=== PATIENT | female | born 1995 | race Caucasian/White ===

== ENCOUNTER 2018-06-15 06:10 | Inpatient (IN) | payer OTHER ==
--- NOTE | 2018-06-15 09:45 | PR ---
[facility] [address] [facility] [place], [place] [address] Signed Progress Notes IP Datetime Report Generated by CPRene: 06/15/2018 09:45 PROGRESS NOTES: [id number] Impression: Normal progression of labor Procedures: Artificial ROM; Scalp Electrode Plan: Continue present management VITAL SIGNS: [id number] Vital Signs: Reviewed; Within Normal Limits EXAM: [id number] Dilatation: 3.0 Effacement: 90 Station: -1 Uterine Contractions: every 1-3 minutes MEMBRANES: [id number] Membrane Status: Ruptured Amniotic Fluid Color: Clear ROM Note: AROM without difficulty, moderate amount clear fluid, decel to 90 right after AROM, resolved with O2 and position change Comments: Good variability but FEKG attached due to rare 15x15 accelerations N2O ordered Fetus A: [id number] FHR Baseline: 120 Variability: Moderate 6-25bpm Accelerations: 10X10 Decelerations: Variable Presentation: Vertex Fetus B: [id number] Signing Physician: Lukas Rogel MD Copies: ~ *Electronically Signed* 06/15/18 0945 LUKAS ROGEL MD PATIENT NAME: GAEL DEGROOT PROGRESS NOTE DATE OF : [birth year] PHYSICIAN: LUKAS ROGEL MD RPT #: [id number] REPORT IS CONFIDENTIAL AND NOT TO BE RELEASED WITHOUT AUTHORIZATION
--- NOTE | 2018-06-15 11:56 | PR ---
[facility] [address] [facility] [place], [place] [address] Signed Progress Notes IP Datetime Report Generated by CPRene: 06/15/2018 11:56 PROGRESS NOTES: [id number] Impression: Normal progression of labor Procedures: Artificial ROM; Scalp Electrode Plan: Continue present management; Anticipate Vaginal Delivery VITAL SIGNS: [id number] Vital Signs: Reviewed; Within Normal Limits EXAM: [id number] Dilatation: 10.0 Effacement: 100 Station: 1 Uterine Contractions: every 2-3 minutes MEMBRANES: [id number] Membrane Status: Ruptured Amniotic Fluid Color: Clear ROM Note: AROM without difficulty, moderate amount clear fluid, decel to 90 right after AROM, resolved with O2 and position change Comments: Trying to push but very painful. Offered Intrathecal anesthesia, but refused. Will continue pushing Fetus A: [id number] FHR Baseline: 115 Variability: Moderate 6-25bpm Accelerations: 10X10 Decelerations: Early; Variable Presentation: Vertex Fetus B: [id number] Signing Physician: Lukas Rogel MD Copies: ~ *Electronically Signed* 06/15/18 1156 LUKAS ROGEL MD PATIENT NAME: GAEL DEGROOT PROGRESS NOTE DATE OF : [birth year] PHYSICIAN: LUKAS ROGEL MD RPT #: [id number] REPORT IS CONFIDENTIAL AND NOT TO BE RELEASED WITHOUT AUTHORIZATION
--- NOTE | 2018-06-15 13:07 | PR ---
[facility] [address] [facility] [place], [place] [address] Signed Progress Notes IP Datetime Report Generated by CPN: 06/15/2018 13:07 PROGRESS NOTES: [id number] Impression: Normal progression of labor Procedures: Artificial ROM; Scalp Electrode Plan: Continue present management Other Plans: Try "hands-knees" VITAL SIGNS: [id number] Vital Signs: Reviewed; Within Normal Limits EXAM: [id number] Dilatation: 10.0 Effacement: 100 Station: 1 Uterine Contractions: every 1-3 minutes MEMBRANES: [id number] Membrane Status: Ruptured Amniotic Fluid Color: Clear ROM Note: AROM without difficulty, moderate amount clear fluid, decel to 90 right after AROM, resolved with O2 and position change Comments: Pushing about 1.5 hrs, fetus now feels probably OP. Will try pushing "hands-knees" Fetus A: [id number] FHR Baseline: 120 Variability: Moderate 6-25bpm Accelerations: 10X10 Decelerations: Variable Presentation: Vertex Fetus B: [id number] Signing Physician: Luz Rogel MD Copies: ~ *Electronically Signed* 06/15/18 1307 LUZ ROGEL MD PATIENT NAME: GAEL DEGROOT PROGRESS NOTE DATE OF : [birth year] PHYSICIAN: LUZ ROGEL MD RPT #: [id number] REPORT IS CONFIDENTIAL AND NOT TO BE RELEASED WITHOUT AUTHORIZATION
--- NOTE | 2018-06-15 15:02 | PR ---
[facility] [address] [facility] [place] [address] Signed PP Progress Notes Datetime Report Generated by CPN: 06/15/2018 15:02 SUBJECTIVE: [id number] Vital Signs: I1335929 Vital Signs: Reviewed; Within Normal Limits EXAM: [id number] IMPRESSION/PLAN/PROCEDURES: J1162370 Progress Notes: Op Note: Retained Placenta Signing Physician: Luz Rogel MD Copies: ~ *Electronically Signed* 06/15/18 1502 LUZ ROGEL MD PATIENT NAME: GAEL DEGROOT PROGRESS NOTE DATE OF : [birth year] PHYSICIAN: LUZ ROGEL MD RPT #: [id number] REPORT IS CONFIDENTIAL AND NOT TO BE RELEASED WITHOUT AUTHORIZATION
--- NOTE | 2018-06-15 15:11 | NUR ---
06/15/18 1511 Nivia Barr 1094 PT ARRIVED IN PACU SLEEPY. FUNDUS FIRM AT UMBILICUS WITH SCANT AMOUNT OF DRAINAGE.
--- NOTE | 2018-06-16 10:38 | PR ---
[facility] [address] [facility] [place], [place] [address] Signed PP Progress Notes Datetime Report Generated by CPN: 06/16/2018 10:38 SUBJECTIVE: [id number] Pain: Within normal limits Nausea/Vomiting: Denies Vital Signs: F7670214 Vital Signs: Reviewed; Within Normal Limits Notable Details: PP Hgb/Hct = 10.1/30.2 EXAM: [id number] Abdomen/Uterus: Normal Lochia: Normal Extremities: Normal IMPRESSION/PLAN/PROCEDURES: [id number] Impression: Normal progression Plan: Continue present management Procedures: None Progress Notes: Doing well, without complaitn, no problems after manual removal of placenta, no dizziness when showering. Signing Physician: Luz Rogel MD Copies: ~ *Electronically Signed* 06/16/18 1038 LUZ ROGEL MD PATIENT NAME: GAEL DEGROOT PROGRESS NOTE DATE OF : [birth year] PHYSICIAN: LUZ ROGEL MD RPT #: [id number] REPORT IS CONFIDENTIAL AND NOT TO BE RELEASED WITHOUT AUTHORIZATION
--- NOTE | 2018-06-17 07:52 | PR ---
[facility] [address] [facility] [place] [address] Signed PP Progress Notes Datetime Report Generated by CPN: 06/17/2018 07:52 SUBJECTIVE: [id number] Pain: Within normal limits Nausea/Vomiting: Denies Vital Signs: G2087444 Vital Signs: Reviewed; Within Normal Limits Notable Details: PP Hgb/Hct = 10.1/30.2 EXAM: [id number] Abdomen/Uterus: Normal Lochia: Normal Extremities: Normal IMPRESSION/PLAN/PROCEDURES: N9957925 Impression: Normal progression Plan: Discharge Procedures: None Progress Notes: Doing well, wants to go home Signing Physician: Luz Rogel MD Copies: ~ *Electronically Signed* 06/17/18 0752 LUZ ROGEL MD PATIENT NAME: GAEL DEGROOT PROGRESS NOTE DATE OF : [birth year] PHYSICIAN: LUZ ROGEL MD RPT #: [id number] REPORT IS CONFIDENTIAL AND NOT TO BE RELEASED WITHOUT AUTHORIZATION
--- NOTE | 2018-06-19 14:01 | OR ---
[facility] [address] [facility] [place], [place] [address] Signed DATE OF OPERATION: 06/15/2018 SURGEON: Lukas Jhaveri MD PREOPERATIVE DIAGNOSIS: retained placenta and first-degree perineal laceration. POSTOPERATIVE DIAGNOSIS: retained placenta and first-degree perineal laceration. PROCEDURE PERFORMED: Manual removal of placenta and repair of laceration. ANESTHESIA: General. ESTIMATED BLOOD LOSS: 350 mL. COMPLICATIONS: None. DRAINS: None. FINDINGS: First-degree perineal laceration in the midline and extending up the left vaginal opening for about 3 cm and no other lacerations seen. The cervix was 4-5 cm diameter. The placenta was quite calcified, mildly adherent to the uterus, mostly in the fundus, but was removed in its entirety. DESCRIPTION OF PROCEDURE: The patient was brought to the operating room, placed in supine position. After adequate general anesthesia was obtained, was placed in the dorsal lithotomy position, prepped and draped in usual sterile fashion. Exam under anesthesia was done gently through the cervix and into the uterine cavity. The placenta could be felt and was gently grasped and noted to be somewhat adherent to the uterus, mostly in the fundus. Fingers were used to separate the placenta from the uterine wall, gently and twisting until the entire placenta was . The placenta was then manually removed through the cervix and now the placenta was inspected. The entire placenta Electronically Signed By: LUKAS JHAVERI MD 06/19/18 1401 PATIENT NAME: GAEL DEGROOT OPERATIVE REPORT DATE OF : [birth year] REPORT #: [id number] PHYSICIAN: LUKAS JHAVERI MD PCP: ELPIDIO ESTRADA REPORT IS CONFIDENTIAL AND NOT TO BE RELEASED WITHOUT AUTHORIZATION [facility] [address] [place], [place] [address] Signed appeared to be there with no missing pieces. The entire placenta had small granulations throughout, calcifications from being postterm, otherwise appeared normal. During the removal, the patient was given Pitocin in IV. The uterus was palpated and noted to be much more firm and while there was large amount of blood removed with the placenta, once the placenta was out the bleeding became minimal. Lap pad was placed in the vagina and then the perineal laceration closed using a 3-0 Vicryl suture, this started as a running locking stitch in midline vagina out to the opening and then subcuticularly through the perineal skin tied in the midline. The small superficial extension along the left side of the opening was closed with the same 3-0 Vicryl suture in subcuticular stitch. At this point, the lap was removed, the entire vagina examined, and no other lacerations were seen. Minimal bleeding was there. Uterus was repalpated and noted to be quite firm. The patient tolerated the procedure well, went to recovery room in good condition. The sponge, needle, and instrument counts were correct at the end of the procedure. The placenta was sent to Pathology for identification. MD BRY Arce/TOBIASL /[id number] Copies: ~ Electronically Signed By: LUKAS JHAVERI MD 06/19/18 1401 PATIENT NAME: GAEL DEGROOT OPERATIVE REPORT DATE OF : [birth year] REPORT #: [id number] PHYSICIAN: LUKAS JHAVERI MD PCP: ELPIDIO ESTRADA REPORT IS CONFIDENTIAL AND NOT TO BE RELEASED WITHOUT AUTHORIZATION
== END 2018-06-17 10:50 | disposition home or self-care (01) | DRG 807 ==
LOC: FBC 06:10
PROVIDERS: ADMIT General Practice
PROC: 10D17Z9 Manual Extraction of Products of Conception, Retained, Via Natural or Artificial Opening (ICD-10-PCS; 2018-06-15)
PROC: 0HQ9XZZ Repair Perineum Skin, External Approach (ICD-10-PCS; 2018-06-15)
PROC: 10907ZC Drainage of Amniotic Fluid, Therapeutic from Products of Conception, Via Natural or Artificial Opening (ICD-10-PCS; 2018-06-15)
PROC: 10E0XZZ Delivery of Products of Conception, External Approach (ICD-10-PCS; principal; 2018-06-15 14:20)
DX: O48.0 Post-term pregnancy (principal); Z37.0 Single live birth; Z3A.41 41 weeks gestation of pregnancy; O76 Abnormality in fetal heart rate and rhythm complicating labor and delivery; O99.824 Streptococcus B carrier state complicating childbirth; O73.0 Retained placenta without hemorrhage; O70.0 First degree perineal laceration during delivery; Z88.0 Allergy status to penicillin; Z88.2 Allergy status to sulfonamides; Z91.040 Latex allergy status
CPT/HCPCS: 00940; 36415; 85027; 86850; 86900; 86901; 86920; J0690; J2590; J7120

== ENCOUNTER 2020-11-17 00:02 | Inpatient (IN) | payer SELFPAY ==
[~2020-11-17] VITALS: Ht 170.2 cm; Wt 92.5 kg
--- NOTE | 2020-11-17 00:43 | NUR ---
COVID nasal swab obtained and take to Lab without incident.
--- NOTE | 2020-11-17 10:27 | PR ---
[facility] [address] [facility] [place], [place] [address] Signed PP Progress Notes Datetime Report Generated by CPN: 11/17/2020 10:27 SUBJECTIVE: [id number] Pain: Within Normal Limits Vital Signs: [id number] Vital Signs: Reviewed; Within Normal Limits Abdomen/Uterus: Normal Lochia: Abnormal Vulva/Perineum: Normal Extremities: Normal IMPRESSION/PLAN/PROCEDURES: R7593310 Other Impression: Hemorrhage Progress Notes: Continued Moderate bleeding, EBL +500 ml. Manual exploration with moderatee clots in lower uterues, expressed, no more clots palpable and uterus smaller and firm IV Pitocin 40 units in 1 liter - run in Tranexamic Acid IV (1 gm) Bleeding seems to be slowing now. Signing Physician: Luz Rogel MD Copies: ~ *Electronically Signed* 11/17/20 1027 LUZ ROGEL MD PATIENT NAME: GAEL DEGROOT PROGRESS NOTE DATE OF : [birth year] PHYSICIAN: LUZ ROGEL MD RPT #: [id number] REPORT IS CONFIDENTIAL AND NOT TO BE RELEASED WITHOUT AUTHORIZATION
--- NOTE | 2020-11-17 12:14 | NUR ---
11/17/20 1214 Sheets,Iza 1146 PT ARRIVED TO PACU PT WAKES TO TACTILE STIMULI AND DENIES PAIN AND NAUSEA. PT REORIENTED TO PACU. MANUAL BP CUFF TAKEN DUE TO PT SHAKING. 1200 MD AT BEDSIDE TALKING TO PT, O2 REMOVED. PT RPEORTS SMALL AMOUNT OF CRAMPING 08/21. PLAN OF CARE DISCUSSED.
--- NOTE | 2020-11-17 13:09 | PR ---
[facility] [address] [facility] [place], [place] [address] Signed PP Progress Notes Datetime Report Generated by CPN: 11/17/2020 13:08 SUBJECTIVE: [id number] Pain: Within Normal Limits Vital Signs: J1231233 Vital Signs: Reviewed; Within Normal Limits Abdomen/Uterus: Abnormal Lochia: Abnormal Vulva/Perineum: Normal Extremities: Normal IMPRESSION/PLAN/PROCEDURES: [id number] Other Impression: PP Hemorrhage Progress Notes: Late Entry: Patient's IV infiltrated, and great difficulty getting new IV access, so did not immediately get IV Pitocin and TXA as ordered. 10 mg IM Pitocin given plus 250 mcg Hemabate IM and then Cytotec Suppository while trying to gain IV access. CBC, PT/PTT, and Fibrinogen ordered, again not drawn until patient in OR. Bleeding continued to be moderate, but with good vital signs and no dizziness or light-headedness from patient. Patient taken to OR for EUA, PP Curettage and Bakri Balloon Placement. See Or Report. Total EBL prior to Surgery @ 1000 ml. Signing Physician: Luz Rogel MD Copies: ~ *Electronically Signed* 11/17/20 1308 LUZ ROGEL MD PATIENT NAME: GAEL DEGROOT PROGRESS NOTE DATE OF : [birth year] PHYSICIAN: LUZ ROGEL MD RPT #: [id number] REPORT IS CONFIDENTIAL AND NOT TO BE RELEASED WITHOUT AUTHORIZATION
--- NOTE | 2020-11-17 13:14 | PR ---
[facility] [address] [facility] [place], [place] [address] Signed PP Progress Notes Datetime Report Generated by CPN: 11/17/2020 13:14 SUBJECTIVE: [id number] Pain: Within Normal Limits Vital Signs: [id number] Vital Signs: Reviewed; Within Normal Limits Abdomen/Uterus: Normal Lochia: Normal Vulva/Perineum: Normal Extremities: Normal IMPRESSION/PLAN/PROCEDURES: [id number] Other Impression: Post-Op Other Plans: Continue close monitoring Progress Notes: Awake and alert after surgery. Bleeding is now minimal. Discussed surgical findings, treatment, questions answered.Will folow closely, continue to watch for excessive bleeding, recheck CBC _ Coag Studies @ 1400 (PT/PTT slightly elevated, normal Fibrinogen, stable Hgb/Hct intra-op labs) 2 Units PRBC's on hold. Signing Physician: Luz Rogel MD Copies: ~ *Electronically Signed* 11/17/20 1314 LUZ ROGEL MD PATIENT NAME: GAEL DEGROOT PROGRESS NOTE DATE OF : 94 PHYSICIAN: LUZ ROGEL MD RPT #: [id number] REPORT IS CONFIDENTIAL AND NOT TO BE RELEASED WITHOUT AUTHORIZATION
--- NOTE | 2020-11-17 18:18 | PR ---
[facility] [address] [facility] [place], [place] [address] Signed PP Progress Notes Datetime Report Generated by CPN: 11/17/2020 18:18 SUBJECTIVE: [id number] Pain: Within Normal Limits Nausea/Vomiting: Denies Vital Signs: [id number] Vital Signs: Reviewed; Within Normal Limits Notable Details: Hgb/Hct, Plts, , PT/PTT, Fibrinogen all back to normal Abdomen/Uterus: Normal Lochia: Normal Vulva/Perineum: Normal Extremities: Normal IMPRESSION/PLAN/PROCEDURES: [id number] Impression: Normal Progression Other Impression: Post Bakri Balloon Placement Other Plans: Continue close monitoring Progress Notes: Doing well after Bakri Ballon placement, minimal bleeding, minimal pain. Will continue close monitoring. Plan removal of Bakri Balloon tomorrow Discussed Surgery, follow-up with patient Signing Physician: Luz Rogel MD Copies: ~ *Electronically Signed* 11/17/20 1818 LUZ ROGEL MD PATIENT NAME: GAEL DEGROOT PROGRESS NOTE DATE OF : [birth year] PHYSICIAN: LUZ ROGEL MD RPT #: [id number] REPORT IS CONFIDENTIAL AND NOT TO BE RELEASED WITHOUT AUTHORIZATION
--- NOTE | 2020-11-18 09:25 | PR ---
[facility] [address] [facility] [place], [place] [address] Signed PP Progress Notes Datetime Report Generated by CPN: 11/18/2020 09:25 SUBJECTIVE: [id number] Pain: Within Normal Limits Nausea/Vomiting: Denies Vital Signs: [id number] Vital Signs: Reviewed; Within Normal Limits Notable Details: Hgb/Hct = 8.2/25.0 Abdomen/Uterus: Normal Lochia: Normal Vulva/Perineum: Normal Extremities: Normal Exam Comments: Minimal blood in Bakri Webb bag. Kerlex gauze in vagina, no active bleeding IMPRESSION/PLAN/PROCEDURES: [id number] Impression: Normal Progression Other Impression: Post Bakri Balloon Placement Other Plans: Continue close monitoring Progress Notes: Patient doing well, m inimal bleeding, only feeling pressure in vagina from pack. Kerlex gauze removed withot difficulty, no active bleeding seen. 300 ml fluid removed form Bakri balloon, then ballon slowly removed from uterine cavity. Patietn tolerated procedure well. No active bleeding seen. Will monitor closely now that balloon and packing are out, but expect no more excessive bleeding, will have Webb removed and increase activity in a few hours if patient continues to remain stable. Signing Physician: Luz Rogel MD Copies: ~ *Electronically Signed* 11/18/20 0925 LUZ ROGEL MD PATIENT NAME: GAEL DEGROOT PROGRESS NOTE DATE OF : [birth year] PHYSICIAN: LUZ ROGEL MD RPT #: [id number] REPORT IS CONFIDENTIAL AND NOT TO BE RELEASED WITHOUT AUTHORIZATION
--- NOTE | 2020-11-18 09:35 | OR ---
[facility] [address] [place], [place] [address] Signed DATE OF OPERATION: 11/17/2020 SURGEON: Lukas Jhaveri MD PREOPERATIVE DIAGNOSIS: hemorrhage. POSTOPERATIVE DIAGNOSES: 1. hemorrhage. 2. Small retained placenta. PROCEDURES: 1. curettage. 2. Bakri balloon placement. HEAD OF TRAINING AND DEVELOPMENT: Jesus Goss D.O. ANESTHESIA: General. ESTIMATED BLOOD LOSS: 200 mL during the procedure. COMPLICATIONS: None. DRAINS: Webb to bladder, Bakri balloon, drainage from the uterus. FINDINGS: Vagina had previously closed first-degree perineal midline incision. The cervix was open. There was no other vaginal lacerations. No cervical lacerations. The uterus was somewhat enlarged and boggy, approximately 18-week size. There was moderate amount of clots present and a small approximately 4-5 cm diameter piece of placental tissue adherent to the anterior lower segment of the uterine cavity. The rest of the cavity had no masses palpable. No defects in the uterine cavity. DESCRIPTION OF PROCEDURE: The patient was brought to the operating room, placed in supine position. After Electronically Signed By: LUKAS JHAVERI MD 11/18/20 0935 PATIENT NAME: GAEL DEGROOT OPERATIVE REPORT DATE OF : [birth year] REPORT #: [id number] PHYSICIAN: LUKAS JHAVERI MD PCP: LUKAS JHAVERI MD REPORT IS CONFIDENTIAL AND NOT TO BE RELEASED WITHOUT AUTHORIZATION [facility] [address] [facility] [place], [place] [address] Signed adequate general anesthesia was obtained, was prepped and draped in usual fashion. The external genitalia, vagina, and cervix were carefully inspected to look for any areas of hemorrhage, none were seen here. The anterior and posterior lips of the open cervix were grasped with a ring forceps to identify the edges, and then bimanual exam done. This piece of placental tissue could be palpated and was gently scraped off the lower segment and passed off to be sent to Pathology. Several clots were also removed from the uterine cavity. Banjo curette was then used to carefully scrape the other rest of the uterine cavity in 360-degree fashion removing small amount of blood and clots. No additional tissue was removed. At this point, there was still slight bleeding. The patient was already receiving IV Pitocin and had recently received IM Hemabate and oral Cytotec because of infiltrated IV right after delivery, so no IV access was obtained until just before surgery. A Bakri balloon was then brought into the field and this was carefully placed up through the cervix up into the uterus and pushed up as close to the fundus as possible. The Bakri balloon was placed under ultrasound guidance and the balloon then filled with 300 mL of saline. As the balloon was filled, the balloon was pushed into the lower segment and down to the cervix, so the balloon was gently pushed up several times to help hold the balloon in the uterine cavity and was kept up as close to the fundus as possible until 300 mL were infused, agin under ultrasound guidance. At this point, the balloon seemed to be staying in the uterine cavity. The ring forceps were removed from the cervix and the Bakri balloon drain tube was attached to a Webb bag to measure the amount of bleeding. At this point, there was small amount of oozing still around the Bakri balloon, and the balloon was in the lower uterine segment, so the vagina was packed with moist Kerlix to help hold the balloon in place. At this point, there was only minimal bleeding, so the procedure was terminated. At the end of the procedure, there was a small laceration on the right vaginal opening. This was very superficial and thought to be due from the bimanual exam. This was closed with a running stitch of 3-0 chromic suture, and then the procedure was terminated. The Webb catheter and Bakri balloon were left in place. The patient tolerated the procedure well and went to the recovery room in good condition. The sponge, needle, and instrument counts were correct at the end of the procedure. Lukas Jhaveri MD MJB/MODL /[id number] Electronically Signed By: LUKAS JHAVERI MD 11/18/20 0935 PATIENT NAME: GAEL DEGROOT OPERATIVE REPORT DATE OF : [birth year] REPORT #: [id number] PHYSICIAN: LUKAS JHAVERI MD PCP: LUKAS JHAVERI MD REPORT IS CONFIDENTIAL AND NOT TO BE RELEASED WITHOUT AUTHORIZATION [facility] [address] [place] [id number] Signed Copies: ~ Electronically Signed By: LUKAS JHAVERI MD 11/18/20 0935 PATIENT NAME: GAEL DEGROOT JOHNNY OPERATIVE REPORT DATE OF : [birth year] REPORT #: [id number] PHYSICIAN: LUKAS JHAVERI MD PCP: LUKAS JHAVERI MD REPORT IS CONFIDENTIAL AND NOT TO BE RELEASED WITHOUT AUTHORIZATION
--- NOTE | 2020-11-19 11:00 | PR ---
[facility] [address] [facility] [place], [place] [address] Signed PP Progress Notes Datetime Report Generated by CPN: 11/19/2020 11:00 SUBJECTIVE: [id number] Pain: Within Normal Limits Nausea/Vomiting: Denies Flatus: Yes Bowel Movement: No Vital Signs: [id number] Vital Signs: Reviewed; Within Normal Limits Notable Details: Hgb/Hct = 8.2/25.0 Cardiovascular: Normal Respiratory: Normal Abdomen/Uterus: Normal Lochia: Normal Vulva/Perineum: Not Done Breasts: Not Done CVA Tenderness: Normal Extremities: Normal Incision: Not Applicable Progress: Normal Exam Comments: Fundus firm U-2 nontender. IMPRESSION/PLAN/PROCEDURES: [id number] Impression: Normal Progression Other Impression: Post Bakri Balloon Placement Plan: Discharge Other Plans: Continue close monitoring Progress Notes: Pt seen and examined. Doing well. Ambulating, voiding, and tolerating full diet. Pain and lochia minimal. well. No other concerns. Desires d/c home today. Signing Physician: Adali Paula DO Copies: ~ *Electronically Signed* 11/19/20 ADALI CHANEY DO PATIENT NAME: GAEL DEGROOT PROGRESS NOTE DATE OF : [birth year] PHYSICIAN: ADALI PAULA DO RPT #: [id number] REPORT IS CONFIDENTIAL AND NOT TO BE RELEASED WITHOUT AUTHORIZATION
--- NOTE | 2020-11-19 16:43 | PATH ---
[facility] [address] [address] [place], [place] [address] Signed SPECIMEN(S): A RETAINED PLACENTA SPECIMEN SOURCE: A. RETAINED PLACENTA CLINICAL HISTORY: No preop or clinical information is given on requisition. FINAL PATHOLOGIC DIAGNOSIS: Retained placenta, removal: - Fragments of mature chorionic villi with breakdown changes, consistent with retained placenta. - Decidua present. NAL:cml:C2NR MICROSCOPIC EXAMINATION: Histologic sections of all submitted blocks are examined by light microscopy. These findings, together with the gross examination, support the pathologic diagnosis. GROSS DESCRIPTION: The specimen, labeled "AP," and designated on the requisition "retained placenta ," is received fresh and placed in formalin and consists of multiple dark brown clotted blood fragments, 8.6 x 6.5 x 3.4 cm in aggregate. Grossly definitive parts or an embryo are not grossly identified. Within the fragments is a 2.0 x 1.4 x 1.4 cm segment of dark red spongy tissue consistent with placental parenchyma that is completely encased with clotted blood. The spongy tissue is without grossly identifiable areas of discoloration. Additional tissue is not grossly identified. Meteorological Observer sections are submitted in one cassette (A1). AI (The direct supervision of a pathologist) The Gross Description was prepared using a voice recognition system. The report was reviewed for accuracy; however, sound-alike word errors, addition and/or deletions may occur. If there is any question about this report, please contact Client Services. PERFORMING LABORATORY: The technical component was performed by [facility], [address] [place] [id number] (Nurse Staff: Ngozi Patel MD; CLIA# [id number]). Professional interpretation was performed by PATIENT NAME: GAEL DEGROOT PATHOLOGY DATE OF : [birth year] REPORT #: [id number] PHYSICIAN: [facility] PCP: LUZ ROGEL MD REPORT IS CONFIDENTIAL AND NOT TO BE RELEASED WITHOUT AUTHORIZATION [facility] [address] [place], [place] [address] Signed [facility], [facility], [address] [facility] [address], [place] [address] (CLIA# [id number]). Diagnostician: Malika Schmidt MD Pathologist Electronically Signed 11/19/2020 Copies: ~ PATIENT NAME: GAEL DEGROOT PATHOLOGY DATE OF : [birth year] REPORT #: [id number] PHYSICIAN: [facility] PCP: LUZ ROGEL MD REPORT IS CONFIDENTIAL AND NOT TO BE RELEASED WITHOUT AUTHORIZATION
== END 2020-11-19 11:10 | disposition home or self-care (01) | DRG 768 ==
LOC: FBC 00:02
PROVIDERS: ADMIT General Practice; ATTEND General Practice
PROC: 0W3R7ZZ Control Bleeding in Genitourinary Tract, Via Natural or Artificial Opening (ICD-10-PCS; 2020-11-17)
PROC: 10D17ZZ Extraction of Products of Conception, Retained, Via Natural or Artificial Opening (ICD-10-PCS; 2020-11-17)
PROC: 00HU33Z Insertion of Infusion Device into Spinal Canal, Percutaneous Approach (ICD-10-PCS; 2020-11-17)
PROC: 3E0R3BZ Introduction of Anesthetic Agent into Spinal Canal, Percutaneous Approach (ICD-10-PCS; 2020-11-17)
PROC: 3E0P7VZ Introduction of Hormone into Female Reproductive, Via Natural or Artificial Opening (ICD-10-PCS; 2020-11-17)
PROC: 0HQ9XZZ Repair Perineum Skin, External Approach (ICD-10-PCS; 2020-11-17)
PROC: 10E0XZZ Delivery of Products of Conception, External Approach (ICD-10-PCS; principal; 2020-11-17 10:15)
DX: O72.0 Third-stage hemorrhage (principal); Z37.0 Single live birth; D62 Acute posthemorrhagic anemia; Z20.822 Contact with and (suspected) exposure to COVID-19; O90.81 Anemia of the puerperium; Z3A.40 40 weeks gestation of pregnancy; O70.0 First degree perineal laceration during delivery; Z88.0 Allergy status to penicillin; Z88.2 Allergy status to sulfonamides; Z91.040 Latex allergy status
CPT/HCPCS: 00952; 85025; 85027; 85384; 85610; 85730; A9270; C9803; J0690; J2405; J2590; J2704; J2795; J3010; U0003